=== PATIENT | male | born 1955 | race Caucasian/White ===

== ENCOUNTER 2020-03-20 22:04 | Emergency (ER) | payer BC ==
[~2020-03-20] VITALS: Ht 177.8 cm; Wt 81.6 kg
[2020-03-20 22:27] VITALS: Ht 177.8 cm; Wt 81.6 kg
[2020-03-21 00:16] VITALS: BP 142/80
== END 2020-03-21 00:16 | disposition home or self-care (01) ==
LOC: ED 22:04
DX: I10 Essential (primary) hypertension (principal)